=== PATIENT | female | born 1950 | race Asian ===

== ENCOUNTER 2018-10-29 18:07 | Inpatient (IN) | payer MEDICARE, OTHER ==
[~2018-10-29] VITALS: Ht 162.6 cm; Wt 62.0 kg
[2018-10-29] MEDS ORDERED: GLIP10 PO (18:18)
[2018-10-29] MEDS ORDERED: LISI-662 PO (18:18)
[2018-10-29] MEDS ORDERED: ASPI-1182 PO (18:18)
[2018-10-29] MEDS ORDERED: METF-960 PO (18:18)
[2018-10-29] MEDS ORDERED: TRAZ-219 PO (18:18)
[2018-10-29] MEDS ORDERED: PIOG15TA6 PO (18:18)
[2018-10-29] MEDS ORDERED: PARO10TA89 PO (18:18)
[2018-10-29 19:07] LABS: BASOPHILS % (AUTO) 0.9 % (0.0-2.0); EOSINOPHILS % (AUTO) 0.2 % (1.0-6.0); HEMATOCRIT 35.3 % (36-46); HEMOGLOBIN 11.8 g/dL (12.0-16.0); LYMPHOCYTES # (AUTO) 0.5 K/uL (1.0-4.8); LYMPHOCYTES % (AUTO) 10.9 % (22.0-44.0); MEAN CORPUSCULAR HGB CONC 33.4 G/dL (31.0-37.0); MEAN CORPUSCULAR VOLUME 78 fL (80-100); MONOCYTES # (AUTO) 0.6 K/uL (0.1-1.0); MONOCYTES % (AUTO) 13.1 % (2.0-9.0); NEUTROPHILS # (AUTO) 3.4 K/uL (1.8-7.7); NEUTROPHILS % (AUTO) 74.9 % (40.0-70.0); PLATELET COUNT (AUTO) 246 K/uL (150-450); RED BLOOD CELL COUNT(AUTO) 4.53 MIL/uL (4.00-5.20); RED CELL DISTRIBUTION WIDTH 12.6 % (11.5-14.5)
[2018-10-29 19:30] LABS: ALANINE AMINOTRANSFERASE 33 U/L (12-78); ALBUMIN 3.8 g/dL (3.4-5.0); ALKALINE PHOSPHATASE 131 U/L (46-116); ANION GAP 10 mmol/L (8-16); ASPARTATE AMINOTRANSFERASE 35 U/L (15-37); BILIRUBIN,TOTAL 0.5 mg/dL (0.1-1.0); CALCIUM, TOTAL 8.7 mg/dL (8.8-10.5); CARBON DIOXIDE 26 mmol/L (22-29); CHLORIDE 82 mmol/L (98-107); CREATININE 0.88 mg/dL (0.60-1.30); GLOMERULAR FILTR. RATE CALC > 60 mL/min (>60); GLUCOSE,RANDOM 352 mg/dL (70-110); POTASSIUM 3.6 mmol/L (3.5-5.1); TOTAL PROTEIN, SERUM 8.4 g/dL (6.4-8.2); UREA NITROGEN, BLOOD 12 mg/dL (7-18)
[2018-10-29 19:32] LABS: SODIUM SERUM 118 mmol/L (136-145)
[2018-10-29 19:34] LABS: B-TYPE NATRIURETIC PEPTIDE 11 pg/mL (0-100)
[2018-10-29 19:41] LABS: PLATELET MORPHOLOGY COMMENT NORMAL
[2018-10-29] MEDS ORDERED: DiphenhydrAMINE HCL 50 MG/ML VIAL IVP ONE (20:30)
[2018-10-29] MEDS ORDERED: SODIUM CHLORIDE 0.9% 1,000 ML IV ONE (21:00)
[2018-10-29] MEDS ORDERED: ONDANSETRON HCL 4 MG/2 ML VIAL IVP PRN (21:00)
[2018-10-29] MEDS ORDERED: 0.9% SODIUM CHLORIDE 10 ML SYRINGE IVP PRN (21:00)
[2018-10-29] MEDS ORDERED: ACETAMINOPHEN 325 MG TABLET PO PRN (21:00)
[2018-10-29] MEDS ORDERED: SODIUM CHLORIDE 3% 500 ML IV ONE (21:30)
[2018-10-29 21:34] LABS: APPEARANCE,URINE CLEAR (CLEAR); BILIRUBIN,URINE NEGATIVE (NEGATIVE); GLUCOSE, URINE (UA) >=1000 mg/dL (NEGATIVE); KETONES,URINE NEGATIVE (NEGATIVE); LEUKOCYTE ESTERASE ,URINE NEGATIVE (NEGATIVE); NITRATE,URINE NEGATIVE (NEGATIVE); OCCULT BLOOD,URINE NEGATIVE (NEGATIVE); PH,URINE 6.5 (5.0-8.0); PROTEIN,URINE NEGATIVE (NEGATIVE); UROBILINOGEN,URINE 0.2 mg/dL (<=1.0)
[2018-10-29 21:42] LABS: CREATININE,URINE RANDOM 18.3 mg/dL (30.0-125.0)
[2018-10-29 21:51] LABS: BACTERIA,URINE None Seen /HPF (None Seen); RBC,URINE 0-2 /HPF (0-2); SQUAMOUS EPITHELIAL CELL,UR Few /LPF (None Seen); WBC,URINE 0-2 /HPF (0-5)
[2018-10-29 23:08] VITALS: BP 151/88
[2018-10-30] VITALS (7 sets, daily range): BP systolic 101–139; BP diastolic 62–83
[2018-10-30 01:26] LABS: ALANINE AMINOTRANSFERASE 31 U/L (12-78); ALBUMIN 3.6 g/dL (3.4-5.0); ALKALINE PHOSPHATASE 125 U/L (46-116); ANION GAP 10 mmol/L (8-16); ASPARTATE AMINOTRANSFERASE 29 U/L (15-37); BILIRUBIN,TOTAL 0.5 mg/dL (0.1-1.0); CALCIUM, TOTAL 8.7 mg/dL (8.8-10.5); CARBON DIOXIDE 28 mmol/L (22-29); CHLORIDE 89 mmol/L (98-107); CREATININE 0.78 mg/dL (0.60-1.30); GLOMERULAR FILTR. RATE CALC > 60 mL/min (>60); GLUCOSE,RANDOM 167 mg/dL (70-110); POTASSIUM 3.1 mmol/L (3.5-5.1); SODIUM SERUM 127 mmol/L (136-145); TOTAL PROTEIN, SERUM 7.9 g/dL (6.4-8.2); UREA NITROGEN, BLOOD 8 mg/dL (7-18)
[2018-10-30] MEDS ORDERED: HYDROCODONE/ACETAMINOPHEN 5-325 MG TABLET PO PRN (02:15)
[2018-10-30] MEDS ORDERED: ACETAMINOPHEN 325 MG TABLET PO PRN (02:15)
[2018-10-30] MEDS: POTASSIUM CHL 10 MEQ/WATER 50 ML IV SCH ×4 (03:15→05:08)
[2018-10-30] MEDS ORDERED: SODIUM CHLORIDE 0.9% 250 ML IV ONE (03:18)
[2018-10-30] MEDS ORDERED: DEXTROSE 5%-WATER 1,000 ML IV SCH (05:15)
[2018-10-30] MEDS ORDERED: POTASSIUM CHLORIDE 20 MEQ ER TABLET PO ONE (05:15)
[2018-10-30 07:35] LABS: BASOPHILS % (AUTO) 1.2 % (0.0-2.0); EOSINOPHILS % (AUTO) 1.6 % (1.0-6.0); HEMATOCRIT 34.9 % (36-46); HEMOGLOBIN 11.7 g/dL (12.0-16.0); LYMPHOCYTES # (AUTO) 0.5 K/uL (1.0-4.8); LYMPHOCYTES % (AUTO) 16.6 % (22.0-44.0); MEAN CORPUSCULAR HGB CONC 33.5 G/dL (31.0-37.0); MEAN CORPUSCULAR VOLUME 78 fL (80-100); MONOCYTES # (AUTO) 0.6 K/uL (0.1-1.0); MONOCYTES % (AUTO) 19.4 % (2.0-9.0); NEUTROPHILS % (AUTO) 61.2 % (40.0-70.0); PLATELET COUNT (AUTO) 223 K/uL (150-450); RED CELL DISTRIBUTION WIDTH 12.3 % (11.5-14.5)
[2018-10-30 07:47] LABS: ALBUMIN 3.5 g/dL (3.4-5.0); BILIRUBIN,TOTAL 0.5 mg/dL (0.1-1.0); CALCIUM, TOTAL 8.9 mg/dL (8.8-10.5); CREATININE 0.93 mg/dL (0.60-1.30); TOTAL PROTEIN, SERUM 7.8 g/dL (6.4-8.2)
[2018-10-30 07:51] LABS: PROTHROMBIN TIME 10.7 SEC (9.4-11.6)
[2018-10-30] MEDS: ENOXAPARIN SODIUM 40 MG/0.4 ML PF SYRINGE SQ SCH (08:04)
[2018-10-30] MEDS: LISINOPRIL 20 MG TABLET PO SCH (08:04)
[2018-10-30] MEDS: ASPIRIN 81 MG EC TABLET PO SCH (08:04)
[2018-10-30 08:57] LABS: GLUCOSE,POINT OF CARE 354 MG/DL (70-110)
[2018-10-30] MEDS ORDERED: DEXTROSE 50%-WATER 25 GM/50 ML SYRINGE IVP PRN (12:15)
[2018-10-30] MEDS: INSULIN LISPRO 100 UNITS/ML SQ PRN ×2 (12:20→20:34)
[2018-10-30 12:57] LABS: ANION GAP 6 mmol/L (8-16); CARBON DIOXIDE 26 mmol/L (22-29); CHLORIDE 81 mmol/L (98-107); CREATININE 0.83 mg/dL (0.60-1.30); GLOMERULAR FILTR. RATE CALC > 60 mL/min (>60); POTASSIUM 3.8 mmol/L (3.5-5.1); UREA NITROGEN, BLOOD 8 mg/dL (7-18)
[2018-10-30 13:00] LABS: SODIUM SERUM 113 mmol/L (136-145)
[2018-10-30 13:01] LABS: GLUCOSE,RANDOM 556 mg/dL (70-110)
[2018-10-30 17:49] LABS: GLUCOMETER DEV NAME(LOC) 5S.2; GLUCOSE,POINT OF CARE 123 MG/DL (70-110)
[2018-10-30 19:49] LABS: GLUCOMETER DEV NAME(LOC) 5S.1; GLUCOSE,POINT OF CARE 220 MG/DL (70-110)
[2018-10-30] MEDS: TraZODone HCL 50 MG TABLET PO SCH (20:03)
[2018-10-30] MEDS: PARoxetine HCL 10 MG TABLET PO SCH (20:03)
[2018-10-30] MEDS: SODIUM CHLORIDE 0.9% 1,000 ML IV SCH (20:33)
[2018-10-30] MEDS: SODIUM CHLORIDE 1 GM TABLET PO SCH (23:30)
[2018-10-31 05:18] VITALS: BP 115/72
[2018-10-31] MEDS: SODIUM CHLORIDE 1 GM TABLET PO SCH ×3 (05:54→17:33)
[2018-10-31] MEDS: INSULIN LISPRO 100 UNITS/ML SQ PRN ×4 (05:59→21:02)
[2018-10-31 07:44] VITALS: BP 115/63
[2018-10-31 07:49] LABS: ANION GAP 10 mmol/L (8-16); CALCIUM, TOTAL 8.3 mg/dL (8.8-10.5); CARBON DIOXIDE 25 mmol/L (22-29); CHLORIDE 98 mmol/L (98-107); CREATININE 0.92 mg/dL (0.60-1.30); GLOMERULAR FILTR. RATE CALC > 60 mL/min (>60); GLUCOSE,RANDOM 99 mg/dL (70-110); PHOSPHORUS 3.1 mg/dL (2.5-4.9); POTASSIUM 3.4 mmol/L (3.5-5.1); SODIUM SERUM 133 mmol/L (136-145); UREA NITROGEN, BLOOD 10 mg/dL (7-18)
[2018-10-31] MEDS ORDERED: MAGNESIUM SULFATE 2 GM in DEXTROSE 5%-WATER 50 ML IV ONE (08:00)
[2018-10-31] MEDS: ASPIRIN 81 MG EC TABLET PO SCH (08:43)
[2018-10-31] MEDS: LISINOPRIL 20 MG TABLET PO SCH (08:43)
[2018-10-31] MEDS: ENOXAPARIN SODIUM 40 MG/0.4 ML PF SYRINGE SQ SCH (08:43)
[2018-10-31 11:12] VITALS: BP 111/65
[2018-10-31] MEDS ORDERED: POTASSIUM CHLORIDE 20 MEQ ER TABLET PO ONE (11:30)
[2018-10-31 15:28] VITALS: BP 130/73
[2018-10-31] MEDS: SODIUM CHLORIDE 0.9% 1,000 ML IV SCH (17:37)
[2018-10-31 19:39] LABS: SODIUM,URINE RANDOM 41 mmol/l (20-110)
[2018-10-31 19:44] LABS: OSMOLALITY,URINE 180 mOS/kg (50-1200)
[2018-10-31 19:54] VITALS: BP 145/80
[2018-10-31] MEDS: PARoxetine HCL 10 MG TABLET PO SCH (21:03)
[2018-10-31] MEDS: TraZODone HCL 50 MG TABLET PO SCH (21:03)
[2018-10-31] MEDS ORDERED: POTASSIUM CHLORIDE 10% 40 MEQ/30 ML LIQUID UDCUP PO ONE (22:15)
[2018-10-31] MEDS ORDERED: MAGNESIUM SULFATE 1 GM in DEXTROSE 5%-WATER 50 ML IV ONE (22:30)
[2018-11-01] MEDS: SODIUM CHLORIDE 1 GM TABLET PO SCH ×2 (00:24→06:30)
[2018-11-01 00:36] VITALS: BP 105/65
[2018-11-01 05:03] VITALS: BP 150/73
[2018-11-01] MEDS: INSULIN LISPRO 100 UNITS/ML SQ PRN ×2 (06:32→12:29)
[2018-11-01 07:29] LABS: BASOPHILS % (AUTO) 1.3 % (0.0-2.0); HEMATOCRIT 32.4 % (36-46); HEMOGLOBIN 10.7 g/dL (12.0-16.0); LYMPHOCYTES # (AUTO) 0.6 K/uL (1.0-4.8); LYMPHOCYTES % (AUTO) 17.6 % (22.0-44.0); MEAN CORPUSCULAR HEMOGLOBIN 25.7 pg (26.0-34.0); MEAN CORPUSCULAR HGB CONC 33.1 G/dL (31.0-37.0); MEAN CORPUSCULAR VOLUME 78 fL (80-100); MONOCYTES # (AUTO) 0.5 K/uL (0.1-1.0); NEUTROPHILS # (AUTO) 2.2 K/uL (1.8-7.7); NEUTROPHILS % (AUTO) 61.1 % (40.0-70.0); PLATELET COUNT (AUTO) 198 K/uL (150-450); RED BLOOD CELL COUNT(AUTO) 4.16 MIL/uL (4.00-5.20); RED CELL DISTRIBUTION WIDTH 12.5 % (11.5-14.5)
[2018-11-01 07:42] LABS: ANION GAP 6 mmol/L (8-16); CALCIUM, TOTAL 8.5 mg/dL (8.8-10.5); CARBON DIOXIDE 27 mmol/L (22-29); CHLORIDE 105 mmol/L (98-107); CREATININE 0.81 mg/dL (0.60-1.30); GLOMERULAR FILTR. RATE CALC > 60 mL/min (>60); GLUCOSE,RANDOM 127 mg/dL (70-110); PHOSPHORUS 3.1 mg/dL (2.5-4.9); POTASSIUM 4.2 mmol/L (3.5-5.1); SODIUM SERUM 138 mmol/L (136-145); UREA NITROGEN, BLOOD 11 mg/dL (7-18)
[2018-11-01 08:21] VITALS: BP 146/80
[2018-11-01] MEDS: ENOXAPARIN SODIUM 40 MG/0.4 ML PF SYRINGE SQ SCH (08:24)
[2018-11-01] MEDS: LISINOPRIL 20 MG TABLET PO SCH (08:24)
[2018-11-01] MEDS: ASPIRIN 81 MG EC TABLET PO SCH (08:24)
[2018-11-01 10:48] LABS: GLUCOMETER DEV NAME(LOC) 5S.2; GLUCOSE,POINT OF CARE 136 MG/DL (70-110)
[2018-11-01 10:48] LABS: GLUCOMETER DEV NAME(LOC) 5S.2; GLUCOSE,POINT OF CARE 137 MG/DL (70-110)
[2018-11-01 10:50] LABS: GLUCOMETER DEV NAME(LOC) 5S.1; GLUCOSE,POINT OF CARE 150 MG/DL (70-110)
[2018-11-01 10:50] LABS: GLUCOMETER DEV NAME(LOC) 5S.1; GLUCOSE,POINT OF CARE 143 MG/DL (70-110)
[2018-11-01 10:51] LABS: GLUCOMETER DEV NAME(LOC) 5S.1; GLUCOSE,POINT OF CARE 141 MG/DL (70-110)
[2018-11-01 11:50] VITALS: BP 134/78
[2018-11-01] MEDS ORDERED: SODIUM CHLORIDE 1 GM TABLET PO SCH (12:00)
[2018-11-01] MEDS: SODIUM CHLORIDE 0.9% 1,000 ML IV SCH (12:27)
[2018-11-01] MEDS ORDERED: NACL1 PO (14:30)
[2018-11-01 15:46] VITALS: BP 147/81
[2018-11-01 19:14] LABS: GLUCOMETER DEV NAME(LOC) 5S.1; GLUCOSE,POINT OF CARE 131 MG/DL (70-110)
== END 2018-11-01 17:20 | disposition home or self-care (01) | DRG 643 ==
LOC: EMS 18:09 → 5S 21:00
PROVIDERS: ADMIT Internal Medicine; ATTEND Internal Medicine
DX: E22.2 Syndrome of inappropriate secretion of antidiuretic hormone (principal); G93.41 Metabolic encephalopathy; F32.9 Major depressive disorder, single episode, unspecified; E11.65 Type 2 diabetes mellitus with hyperglycemia; I10 Essential (primary) hypertension; E78.00 Pure hypercholesterolemia, unspecified; Z86.73 Personal history of transient ischemic attack (TIA), and cerebral infarction without residual deficits; Z79.84 Long term (current) use of oral hypoglycemic drugs; Z79.82 Long term (current) use of aspirin; Z90.710 Acquired absence of both cervix and uterus; L30.9 Dermatitis, unspecified; E83.42 Hypomagnesemia; E78.5 Hyperlipidemia, unspecified
CPT/HCPCS: 70450; 82570; 83735; 83930; 83935; 84100; 84295; 84300; 93005; 96365; 96375; 99291; G0378; J1200; J1650; J3475; J3480; J7030; J7050; J7060